=== PATIENT | male | born 1960 | race Caucasian/White ===

== ENCOUNTER 2016-07-03 18:26 | Emergency (ER) | payer MEDICARE, MEDICAID ==
[~2016-07-03] VITALS: Ht 182.9 cm; Wt 101.5 kg
[~2016-07-03 18:26] MED LIST: ACET325T14 PO; BISA10SU65 PR; CEFA2PLA9 IV; DIAZ2TAB3 PO; DIPH50VI4 IVPush; DOCU-30 PO; Enoxaparin Sodium SQ; GABA100C8 PO; GABA300C10 PO; HYDR-3241 PO; HYDR2VIA2 IV; LABE5VIA13 IV; METH500T7 PO; METH750T2 PO; MORP30TA3 PO; ONDA4VIA4 IV; OXYC-229 PO; OXYC1TAB9 PO; OXYC20TA42 PO; POLY17PO5 PO; PROM25AM6 IM; TRAM50TA2 PO; WARF10TA PO-COUM; WARF7.5T PO-COUM; ZOLP-413 PO
[2016-07-03] MEDS ORDERED: SODIUM CHLORIDE 0.9% 1,000ML IVBOLUS ONE (19:00)
[2016-07-03] MEDS ORDERED: ALBUTEROL/IPRATROPIUM 2.5MG/0.5MG, 3 ML NPPB ONE ×2 (19:00→19:30)
[2016-07-03] MEDS ORDERED: SODIUM CHLORIDE FLUSH 10ML SYR IVF ONE (19:00)
[2016-07-03] MEDS ORDERED: methylPREDNISolone SOD SUCC 125 MG/2 ML IVP ONE (19:00)
[2016-07-03 19:12] LABS: HEMOGLOBIN 14.1 g/dL (13.7-18.0)
[2016-07-03 19:16] LABS: BLOOD UREA NITROGEN 6 mg/dL (7-18)
[2016-07-03 19:19] LABS: IS PT STATUS REG ER OR PRE ER? YES
[2016-07-03] MEDS ORDERED: ALBUTEROL/IPRATROPIUM 2.5MG/0.5MG, 3 ML ONE (19:33)
[2016-07-03 21:38] VITALS: BP 121/91
== END 2016-07-03 21:52 | disposition home or self-care (01) ==
LOC: ED 21:41
DX: J44.0 Chronic obstructive pulmonary disease with (acute) lower respiratory infection (principal); J20.8 Acute bronchitis due to other specified organisms; Z89.511 Acquired absence of right leg below knee
CPT/HCPCS: 36415; 71010; 73564; 76882; 80048; 82040; 84484; 85025; 93005; 94640; 99285; J7512; J7620

== ENCOUNTER 2016-08-21 23:04 | Observation (INO) | payer OTHER, MEDICARE, MEDICAID ==
[~2016-08-21] VITALS: Ht 182.9 cm; Wt 101.0 kg
[2016-08-21] MEDS ORDERED: ASPIRIN 81 MG TABLET CHEW ONE (23:49)
[2016-08-22] MEDS ORDERED: ASPIRIN 81 MG TABLET CHEW PO ONE
[2016-08-22] MEDS ORDERED: SODIUM CHLORIDE FLUSH 10ML SYR IVF ONE
[2016-08-22 00:37] LABS: BLOOD UREA NITROGEN 18 mg/dL (7-18)
[2016-08-22 00:46] LABS: IS PT STATUS REG ER OR PRE ER? YES
[2016-08-22] MEDS ORDERED: ENOXAPARIN 40 MG/0.4 ML SQ SCH (01:30)
[2016-08-22] MEDS ORDERED: NITROGLYCERIN 0.4 MG BOTTLE (25 TABS) SL PRN (01:30)
[2016-08-22] MEDS ORDERED: ONDANSETRON 2MG/ML, 2ML IVPush PRN (01:30)
[2016-08-22] MEDS ORDERED: LORazepam 2 MG/ML, 1ML IVPush PRN (01:30)
[2016-08-22] MEDS ORDERED: ACETAMINOPHEN 325 MG TABLET PO PRN (01:30)
[2016-08-22] MEDS ORDERED: LORazepam 2 MG/ML, 1ML ONE (02:03)
[2016-08-22 03:23] VITALS: BP 107/74
[2016-08-22] MEDS: NS + 20MEQ KCL 1,000 ML IV SCH ×2 (03:57→14:00)
[2016-08-22] MEDS ORDERED: ASPIRIN 325 MG TABLET EC PO SCH (06:00)
[2016-08-22] MEDS ORDERED: REGADENOSON 0.4 MG/5 ML SYRINGE ONE (08:42)
[2016-08-22 08:50] VITALS: BP 105/74
[2016-08-22 09:45] LABS: IS PT STATUS REG ER OR PRE ER? NO
[2016-08-22 11:34] LABS: IS PT STATUS REG ER OR PRE ER? NO
== END 2016-08-22 15:00 | disposition left against medical advice (07) ==
LOC: ED 23:59 → EDIP 08-22 01:23 → 5SO 08-22 03:11
DX: R07.89 Other chest pain (principal); I73.9 Peripheral vascular disease, unspecified; D50.9 Iron deficiency anemia, unspecified; F41.9 Anxiety disorder, unspecified; D72.829 Elevated white blood cell count, unspecified; F17.200 Nicotine dependence, unspecified, uncomplicated; Z88.5 Allergy status to narcotic agent; Z83.3 Family history of diabetes mellitus; Z79.82 Long term (current) use of aspirin; Z91.19 Patient's noncompliance with other medical treatment and regimen; Z86.19 Personal history of other infectious and parasitic diseases; Z86.718 Personal history of other venous thrombosis and embolism; Z89.511 Acquired absence of right leg below knee
CPT/HCPCS: 36415; 71010; 78452; 80048; 82040; 83880; 84484; 85025; 85379; 93005; 93017; 96361; 96374; 99285; A9502; C9898; G0378; J2060; J2785; J3480

== ENCOUNTER 2017-03-27 00:18 | Emergency (ER) | payer MEDICARE ==
[~2017-03-27] VITALS: Ht 185.4 cm; Wt 57.0 kg
[~2017-03-27 00:18] MED LIST changes: +DIPH50VI IVPush; -DIPH50VI4 IVPush; +DOCU-131 PO; -DOCU-30 PO; +FAMO20TA7 PO; +FERR325T18 PO; +GABA-826 PO; -GABA100C8 PO; -OXYC-229 PO; +OXYC-307 PO
[2017-03-27 01:28] LABS: ALANINE AMINOTRANSFERASE 17 U/L (12-78); ALBUMIN 3.6 g/dL (3.4-5.0); ANION GAP 6 mmol/L (5-15); CALCIUM 8.9 mg/dL (8.5-10.1); CHLORIDE 104 mmol/L (98-107); CREATININE 0.81 mg/dL (0.7-1.3)
[2017-03-27 01:30] LABS: ALKALINE PHOSPHATASE 94 U/L (45-117); BILIRUBIN,TOTAL 0.3 mg/dL (0.2-1.0); MEAN CORPUSCULAR HEMOGLOBIN 21.4 pg (27.5-34.5); MEAN CORPUSCULAR HGB CONC 31.1 g/dL (33.2-36.2); MEAN CORPUSCULAR VOLUME 68.6 fL (81-97); MEAN PLATELET VOLUME 8.7 fL (7.4-10.4); PLATELET COUNT 457 x10^3/uL (130-400); RED BLOOD COUNT 5.11 x10^6/uL (4.38-5.82); TOTAL PROTEIN 7.5 g/dL (6.4-8.2)
[2017-03-27 01:45] LABS: MD YES
[2017-03-27 01:48] LABS: <PLATELET ESTIMATE> INCREASED; ANISOCYTOSIS 2+; BASOS#(MANUAL) 0.31 x10^3/uL (0-0.1); BASOS% (MANUAL) 3 % (0-1); HYPOCHROMIA 1+; LYMPH#(MANUAL) 3.09 x10^3/uL (1-3.4); LYMPHS% (MANUAL) 30 % (22-44); MICROCYTOSIS 2+; MONOS#(MANUAL) 0.62 x10^3/uL (0.3-2.7); MONOS% (MANUAL) 6 % (2-9); OVALOCYTES 1+; POLYCHROMASIA 1+; SEG#(MANUAL) 6.28 x10^3/uL (1.8-6.8); SEGS% (MANUAL) 61 % (42-75)
[2017-03-27 01:49] LABS: LARGE PLATELETS 1+
[2017-03-27 02:25] VITALS: BP 117/77
== END 2017-03-27 02:28 | disposition home or self-care (01) ==
LOC: ED 00:51
DX: R53.1 Weakness (principal); R42 Dizziness and giddiness; R11.2 Nausea with vomiting, unspecified; F17.200 Nicotine dependence, unspecified, uncomplicated; Z89.511 Acquired absence of right leg below knee; Z98.890 Other specified postprocedural states
CPT/HCPCS: 36415; 80053; 85025; 99284

== ENCOUNTER 2017-04-05 05:46 | Observation (INO) | payer OTHER ==
[~2017-04-05] VITALS: Ht 182.9 cm; Wt 102.9 kg
[2017-04-05] MEDS ORDERED: LIDOCAINE 1%, 2ML SQ PRN (06:30)
[2017-04-05] MEDS ORDERED: FAMO20TA7 PO (06:38)
[2017-04-05] MEDS ORDERED: FERR325T18 PO (06:38)
[2017-04-05 07:16] LABS: AMPHETAMINE SCREEN, URINE Negative (Negative); BARBITURATE SCREEN, URINE Negative (Negative); BENZODIAZEPINE SCREEN, URINE Negative (Negative); CANNABINOID SCREEN, URINE Positive (Negative); COCAINE SCREEN, URINE Negative (Negative); METHADONE SCREEN, URINE Negative (Negative); OPIATE SCREEN, URINE Negative (Negative)
[2017-04-05 07:24] VITALS: BP 128/87
[2017-04-05] MEDS: LACTATED RINGERS 1,000 ML IV SCH ×2 (07:24→13:26)
[2017-04-05 07:31] LABS: MEAN CORPUSCULAR VOLUME 67.8 fL (81-97); MEAN PLATELET VOLUME 9.8 fL (7.4-10.4); PLATELET COUNT 504 x10^3/uL (130-400); RED BLOOD COUNT 4.74 x10^6/uL (4.38-5.82); RED CELL DISTRIBUTION WIDTH 23.2 % (9.4-14.8)
[2017-04-05] MEDS ORDERED: FENTANYL PF 250 MCG/5ML ONE (07:31)
[2017-04-05] MEDS ORDERED: MIDAZOLAM 1 MG/ML, 2ML ONE (07:31)
[2017-04-05] MEDS ORDERED: ONDANSETRON 2MG/ML, 2ML ONE (07:36)
[2017-04-05] MEDS ORDERED: SUCCINYLCHOLINE 20 MG/ML, 10ML ONE (07:36)
[2017-04-05] MEDS ORDERED: GLYCOPYRROLATE 0.2MG/1ML, 5ML ONE (07:36)
[2017-04-05] MEDS ORDERED: ROCURONIUM 10 MG/ML,10ML ONE (07:36)
[2017-04-05] MEDS ORDERED: PROPOFOL 10 MG/ML, 20ML ONE (07:36)
[2017-04-05] MEDS ORDERED: DEXAMETHASONE 4 MG/ML, 1ML ONE (07:36)
[2017-04-05] MEDS ORDERED: NEOSTIGMINE 1 MG/ML, 10ML ONE (07:36)
[2017-04-05] MEDS ORDERED: CEFAZOLIN 1,000 MG ONE (07:36)
[2017-04-05] MEDS ORDERED: LABETALOL 5MG/ML, 20ML IV PRN (08:00)
[2017-04-05] MEDS ORDERED: HYDROcodone/APAP 7.5-325MG/15ML UDC PO PRN (08:00)
[2017-04-05] MEDS ORDERED: HYDROmorphone 1 MG/ML, 1ML IV PRN (08:00)
[2017-04-05] MEDS ORDERED: OXYcodone 5 MG/5 ML ORAL.SOL UDC PO PRN (08:00)
[2017-04-05] MEDS ORDERED: ONDANSETRON 2MG/ML, 2ML IVPush PRN ×2 (08:00→11:00)
[2017-04-05] MEDS ORDERED: hydrALAzine 20 MG/ML, 1ML IV PRN (08:00)
[2017-04-05] MEDS ORDERED: ACETAMINOPHEN 325 MG TABLET PO PRN (08:00)
[2017-04-05 08:25] LABS: MD YES
[2017-04-05 08:30] LABS: ANISOCYTOSIS 2+; EOS#(MANUAL) 0.19 x10^3/uL (0.0-0.4); EOS% (MANUAL) 2 % (1-7); HYPOCHROMIA 1+; LYMPH#(MANUAL) 4.37 x10^3/uL (1-3.4); LYMPHS% (MANUAL) 46 % (22-44); MICROCYTOSIS 2+; MONOS#(MANUAL) 0.57 x10^3/uL (0.3-2.7); MONOS% (MANUAL) 6 % (2-9); SEG#(MANUAL) 4.37 x10^3/uL (1.8-6.8); SEGS% (MANUAL) 46 % (42-75)
[2017-04-05 08:31] LABS: <PLATELET ESTIMATE> INCREASED; <PLT MORPHOLOGY> NORMAL PLT MORPH; OVALOCYTES 1+
[2017-04-05] MEDS ORDERED: HYDROmorphone 2 MG/ML, 1ML ONE ×4 (09:04→23:10)
[2017-04-05] MEDS ORDERED: PHENYLEPHRINE 10 MG/ML ONE (09:17)
[2017-04-05] MEDS ORDERED: VASOPRESSIN 20 UNIT/ML, 1ML ONE (09:17)
[2017-04-05] MEDS ORDERED: FENTANYL PF 100 MCG/2ML ONE (10:50)
[2017-04-05] MEDS ORDERED: ACETAMINOPHEN 650 MG/20.3 ML UDC ONE (10:50)
[2017-04-05] MEDS ORDERED: OXYcodone 5 MG/5 ML ORAL.SOL UDC ONE (10:50)
[2017-04-05] MEDS: FENTANYL PF 100 MCG/2ML IV PRN ×2 (10:52→10:58)
[2017-04-05] MEDS: KETOROLAC 30 MG/1 ML IVPush SCH ×2 (11:00→18:01)
[2017-04-05] MEDS ORDERED: BISACODYL 10 MG SUPP PR PRN (11:00)
[2017-04-05] MEDS ORDERED: KETOROLAC 30 MG/1 ML ONE (11:02)
[2017-04-05] MEDS: HYDROmorphone 1 MG/ML, 1ML IVPush PRN ×5 (11:05→23:12)
[2017-04-05] MEDS ORDERED: LORazepam 2 MG/ML, 1ML ONE (11:23)
[2017-04-05] MEDS ORDERED: LORazepam 2 MG/ML, 1ML IVPush PRN (11:30)
[2017-04-05] MEDS ORDERED: VANCOMYCIN PMX 1GM/200ML 200 ML IVPB ONE (12:00)
[2017-04-05 14:30] VITALS: BP 119/70
[2017-04-05] MEDS: OXYcodone/APAP 10/325MG TABLET PO PRN ×3 (15:09→21:29)
[2017-04-05] MEDS: CEFAZOLIN PMX 2GM/50ML 50 ML IVPB SCH (18:00)
[2017-04-05] MEDS: FERROUS SULFATE 325 MG TABLET PO SCH (18:01)
[2017-04-05 18:52] VITALS: BP 102/58
[2017-04-05] MEDS ORDERED: FERROUS SULFATE 325 MG TABLET PO SCH (21:00)
[2017-04-05] MEDS ORDERED: DOCUSATE 100 MG CAPSULE PO PRN (21:00)
[2017-04-05] MEDS: FAMOTIDINE 20 MG TABLET PO SCH (21:29)
[2017-04-05 23:53] VITALS: BP 127/70
[2017-04-06] MEDS: CEFAZOLIN PMX 2GM/50ML 50 ML IVPB SCH (02:00)
[2017-04-06] MEDS: OXYcodone/APAP 10/325MG TABLET PO PRN ×3 (02:45→11:43)
[2017-04-06] MEDS: KETOROLAC 30 MG/1 ML IVPush SCH (02:45)
[2017-04-06 03:59] VITALS: BP 122/72
[2017-04-06 05:57] LABS: CREATININE 0.92 mg/dL (0.7-1.3)
[2017-04-06] MEDS ORDERED: HYDROmorphone 2 MG/ML, 1ML ONE ×2 (08:34→13:29)
[2017-04-06 08:40] VITALS: BP 122/67
[2017-04-06] MEDS: FAMOTIDINE 20 MG TABLET PO SCH (08:40)
[2017-04-06] MEDS: HYDROmorphone 1 MG/ML, 1ML IVPush PRN ×2 (08:40→13:34)
[2017-04-06] MEDS: FERROUS SULFATE 325 MG TABLET PO SCH (08:40)
[2017-04-06] MEDS ORDERED: ENOXAPARIN 40 MG/0.4 ML SQ SCH (09:00)
[2017-04-06 12:40] VITALS: BP 116/55
== END 2017-04-06 15:55 | disposition left against medical advice (07) ==
LOC: OUT 05:46 → 4NOR 10:46
PROVIDERS: ADMIT Orthopaedic Surgery; ATTEND Orthopaedic Surgery
DX: S82.209B Unspecified fracture of shaft of unspecified tibia, initial encounter for open fracture type I or II (principal); S87.81XA Crushing injury of right lower leg, initial encounter; W23.0XXA Caught, crushed, jammed, or pinched between moving objects, initial encounter; M89.9 Disorder of bone, unspecified
CPT/HCPCS: 27886; 36415; 80307; 82565; 85025; 96365; 96367; 96375; 96376; G0378; J0330; J0690; J1100; J1170; J1650; J1885; J2060; J2250; J2370; J2405; J2704; J3010; J3370; J3490; J7120; J2710

== ENCOUNTER 2017-05-29 22:39 | Inpatient (IN) | payer OTHER ==
[~2017-05-29] VITALS: Ht 182.9 cm; Wt 111.3 kg
[2017-05-29] MEDS ORDERED: HYDROmorphone 1 MG/ML, 1ML IM ONE (23:30)
[2017-05-29] MEDS ORDERED: CEFTAROLINE 600 MG in SODIUM CHLORIDE 0.9% 100 ML IV ONE (23:30)
[2017-05-29] MEDS ORDERED: SODIUM CHLORIDE 0.9% 1,000ML IVBOLUS ONE (23:30)
[2017-05-29] MEDS ORDERED: SODIUM CHLORIDE FLUSH 10ML SYR IVF ONE (23:30)
[2017-05-29] MEDS ORDERED: HYDROmorphone 2 MG/ML, 1ML ONE (23:36)
[2017-05-30 00:02] LABS: MEAN CORPUSCULAR HEMOGLOBIN 19.7 pg (27.5-34.5); MEAN CORPUSCULAR HGB CONC 30.7 g/dL (33.2-36.2); MEAN CORPUSCULAR VOLUME 64.2 fL (81-97); RED CELL DISTRIBUTION WIDTH 23.1 % (9.4-14.8)
[2017-05-30 00:12] LABS: ALBUMIN 3.4 g/dL (3.4-5.0); ANION GAP 9 mmol/L (5-15); CALCIUM 8.8 mg/dL (8.5-10.1); CHLORIDE 101 mmol/L (98-107); CREATININE 0.79 mg/dL (0.7-1.3)
[2017-05-30 00:30] LABS: MD YES
[2017-05-30] MEDS ORDERED: hydrALAzine 20 MG/ML, 1ML IVPush PRN (00:30)
[2017-05-30] MEDS ORDERED: ONDANSETRON 2MG/ML, 2ML IVPush PRN (00:30)
[2017-05-30 00:31] LABS: MEAN PLATELET VOLUME 9.7 fL (7.4-10.4); PLATELET COUNT 707 x10^3/uL (130-400)
[2017-05-30 00:35] LABS: ANISOCYTOSIS 2+; BANDS%(MANUAL) 1 % (0-7); BASOS% (MANUAL) 2 % (0-1); LYMPH#(MANUAL) 1.59 x10^3/uL (1-3.4); LYMPHS% (MANUAL) 8 % (22-44); METAMYELOCYTES% (MANUAL) 1 % (0-1); MONOS#(MANUAL) 1.59 x10^3/uL (0.3-2.7); MONOS% (MANUAL) 8 % (2-9); NRBC % (MANUAL) 1 % (0-1); REACTIVE LYMPHS % (MANUAL) 3 % (0-0); SEGS% (MANUAL) 77 % (42-75)
[2017-05-30 00:43] LABS: ABSOLUTE RETICS # 0.13 x10^6/uL (0.5-1.5); RED BLOOD COUNT 4.97 x10^6/uL (4.38-5.82); RETICULOCYTE COUNT % 2.61 % (0.5-1.5)
[2017-05-30 00:45] LABS: <PLATELET ESTIMATE> INCREASED; HYPOCHROMIA 1+; MICROCYTOSIS 2+; OVALOCYTES 1+; POLYCHROMASIA 1+
[2017-05-30 00:48] LABS: LARGE PLATELETS 1+
[2017-05-30] MEDS: CEFTAROLINE 600 MG in SODIUM CHLORIDE 0.9% 100 ML IV SCH ×2 (01:15→13:46)
[2017-05-30] MEDS: ACETAMINOPHEN 325 MG TABLET PO PRN ×2 (01:30→08:59)
[2017-05-30] MEDS: OXYcodone IR 5MG TABLET PO PRN ×5 (01:30→22:31)
[2017-05-30] MEDS: LACTATED RINGERS 1,000 ML IV SCH ×3 (01:33→21:18)
[2017-05-30 01:35] VITALS: BP 112/73
[2017-05-30] MEDS: HEPARIN 5,000 UNITS/ML, 1ML SQ SCH ×3 (01:49→16:30)
[2017-05-30 07:55] VITALS: BP 118/74
[2017-05-30] MEDS: IRON SUCROSE COMPLEX 100MG/5ML IV SCH (08:44)
[2017-05-30] MEDS: FAMOTIDINE 20 MG TABLET PO SCH ×3 (08:45→22:32)
[2017-05-30 13:47] VITALS: BP 146/84
[2017-05-30 13:51] VITALS: BP 102/65
[2017-05-30 19:21] VITALS: BP 101/66
[2017-05-31] MEDS: HEPARIN 5,000 UNITS/ML, 1ML SQ SCH ×3 (00:16→16:34)
[2017-05-31] MEDS: CEFTAROLINE 600 MG in SODIUM CHLORIDE 0.9% 100 ML IV SCH ×2 (00:16→13:13)
[2017-05-31 01:19] VITALS: BP 107/70
[2017-05-31 05:58] LABS: ALBUMIN 2.8 g/dL (3.4-5.0); ANION GAP 8 mmol/L (5-15); CALCIUM 8.6 mg/dL (8.5-10.1); CHLORIDE 105 mmol/L (98-107)
[2017-05-31 06:02] LABS: ALANINE AMINOTRANSFERASE 22 U/L (12-78); ALKALINE PHOSPHATASE 103 U/L (45-117); BILIRUBIN,TOTAL 0.3 mg/dL (0.2-1.0); CREATININE 0.69 mg/dL (0.7-1.3); MEAN CORPUSCULAR HEMOGLOBIN 20.1 pg (27.5-34.5); MEAN CORPUSCULAR HGB CONC 31.2 g/dL (33.2-36.2); MEAN CORPUSCULAR VOLUME 64.2 fL (81-97); MEAN PLATELET VOLUME 8.7 fL (7.4-10.4); PLATELET COUNT 480 x10^3/uL (130-400); RED BLOOD COUNT 4.47 x10^6/uL (4.38-5.82); RED CELL DISTRIBUTION WIDTH 22.4 % (9.4-14.8); TOTAL PROTEIN 6.9 g/dL (6.4-8.2)
[2017-05-31] MEDS: LACTATED RINGERS 1,000 ML IV SCH ×2 (06:23→09:27)
[2017-05-31 06:36] LABS: MD YES
[2017-05-31 07:16] LABS: BASOS#(MANUAL) 0.38 x10^3/uL (0-0.1); BASOS% (MANUAL) 4 % (0-1); EOS#(MANUAL) 0.09 x10^3/uL (0.0-0.4); EOS% (MANUAL) 1 % (1-7); LYMPHS% (MANUAL) 17 % (22-44); MONOS#(MANUAL) 1.41 x10^3/uL (0.3-2.7); MONOS% (MANUAL) 15 % (2-9); SEG#(MANUAL) 5.92 x10^3/uL (1.8-6.8); SEGS% (MANUAL) 63 % (42-75)
[2017-05-31 07:23] LABS: ANISOCYTOSIS 2+; HYPOCHROMIA 1+; MICROCYTOSIS 2+; POLYCHROMASIA 1+
[2017-05-31 07:25] LABS: LARGE PLATELETS 1+
[2017-05-31 07:27] LABS: <PLATELET ESTIMATE> INCREASED
[2017-05-31 07:32] VITALS: BP 108/63
[2017-05-31] MEDS: FAMOTIDINE 20 MG TABLET PO SCH ×2 (09:27→20:35)
[2017-05-31] MEDS: OXYcodone IR 5MG TABLET PO PRN ×3 (09:28→17:19)
[2017-05-31] MEDS: IRON SUCROSE COMPLEX 100MG/5ML IV SCH (09:37)
[2017-05-31 13:42] VITALS: BP 94/50
[2017-05-31 18:31] VITALS: BP 116/66
[2017-06-01] MEDS: CEFTAROLINE 600 MG in SODIUM CHLORIDE 0.9% 100 ML IV SCH ×2 (00:30→12:39)
[2017-06-01] MEDS: HEPARIN 5,000 UNITS/ML, 1ML SQ SCH ×4 (00:30→22:59)
[2017-06-01 00:40] VITALS: BP 98/62
[2017-06-01] MEDS: OXYcodone IR 5MG TABLET PO PRN ×4 (02:24→21:33)
[2017-06-01 07:56] VITALS: BP 113/74
[2017-06-01] MEDS: FAMOTIDINE 20 MG TABLET PO SCH ×2 (10:32→19:57)
[2017-06-01] MEDS: IRON SUCROSE COMPLEX 100MG/5ML IV SCH (10:32)
[2017-06-01] MEDS: ACETAMINOPHEN 325 MG TABLET PO PRN ×2 (10:45→17:28)
[2017-06-01 13:37] VITALS: BP 93/59
[2017-06-01] MEDS: LACTATED RINGERS 1,000 ML IV SCH (15:00)
[2017-06-01 20:04] VITALS: BP 110/72
[2017-06-02] MEDS: CEFTAROLINE 600 MG in SODIUM CHLORIDE 0.9% 100 ML IV SCH ×2 (00:56→12:31)
[2017-06-02] MEDS: LACTATED RINGERS 1,000 ML IV SCH ×3 (01:00→21:00)
[2017-06-02 01:02] VITALS: BP 103/66
[2017-06-02] MEDS: OXYcodone IR 5MG TABLET PO PRN ×5 (01:33→18:29)
[2017-06-02 07:37] VITALS: BP 97/60
[2017-06-02] MEDS: HEPARIN 5,000 UNITS/ML, 1ML SQ SCH ×2 (08:07→15:35)
[2017-06-02] MEDS: IRON SUCROSE COMPLEX 100MG/5ML IV SCH (10:01)
[2017-06-02] MEDS: FAMOTIDINE 20 MG TABLET PO SCH ×2 (10:01→21:40)
[2017-06-02] MEDS ORDERED: GADOBUTROL 10 MMOL/10 ML PFS ONE (14:10)
[2017-06-02 15:28] VITALS: BP 108/66
[2017-06-02 19:48] VITALS: BP 90/53
[2017-06-03] MEDS: CEFTAROLINE 600 MG in SODIUM CHLORIDE 0.9% 100 ML IV SCH ×2 (00:08→12:32)
[2017-06-03] MEDS: OXYcodone IR 5MG TABLET PO PRN ×6 (01:54→22:43)
[2017-06-03 03:41] VITALS: BP 110/70
[2017-06-03] MEDS: LACTATED RINGERS 1,000 ML IV SCH ×2 (07:00→15:38)
[2017-06-03] MEDS: HEPARIN 5,000 UNITS/ML, 1ML SQ SCH ×3 (08:00→15:34)
[2017-06-03 08:17] VITALS: BP 120/76
[2017-06-03] MEDS: FAMOTIDINE 20 MG TABLET PO SCH ×2 (09:55→20:15)
[2017-06-03] MEDS: IRON SUCROSE COMPLEX 100MG/5ML IV SCH (09:55)
[2017-06-03] MEDS ORDERED: NICOTINE 14MG/24 HR PATCH.TD24 ONE (13:44)
[2017-06-03] MEDS: NICOTINE 14MG/24 HR PATCH.TD24 TD SCH (13:47)
[2017-06-03 15:00] VITALS: BP 113/71
[2017-06-03 20:20] VITALS: BP 112/57
[2017-06-04] MEDS: CEFTAROLINE 600 MG in SODIUM CHLORIDE 0.9% 100 ML IV SCH ×3 (00:18→23:50)
[2017-06-04 01:07] VITALS: BP 127/72
[2017-06-04] MEDS: OXYcodone IR 5MG TABLET PO PRN ×3 (03:23→21:34)
[2017-06-04] MEDS: LACTATED RINGERS 1,000 ML IV SCH ×3 (03:24→23:51)
[2017-06-04] MEDS ORDERED: BACITRACIN 50,000 UNIT ONE (06:52)
[2017-06-04 07:22] LABS: MEAN CORPUSCULAR HEMOGLOBIN 20.5 pg (27.5-34.5); MEAN CORPUSCULAR HGB CONC 30.8 g/dL (33.2-36.2); MEAN CORPUSCULAR VOLUME 66.7 fL (81-97); MEAN PLATELET VOLUME 9.3 fL (7.4-10.4); PLATELET COUNT 646 x10^3/uL (130-400); RED BLOOD COUNT 4.95 x10^6/uL (4.38-5.82); RED CELL DISTRIBUTION WIDTH 22.9 % (9.4-14.8)
[2017-06-04] MEDS: HEPARIN 5,000 UNITS/ML, 1ML SQ SCH ×4 (07:29→23:51)
[2017-06-04 07:32] LABS: ANION GAP 7 mmol/L (5-15); CALCIUM 8.6 mg/dL (8.5-10.1); CHLORIDE 107 mmol/L (98-107); CREATININE 0.84 mg/dL (0.7-1.3)
[2017-06-04 09:00] LABS: BAND#(MANUAL) 0.09 x10^3/uL; BANDS%(MANUAL) 1 % (0-7); LYMPH#(MANUAL) 1.74 x10^3/uL (1-3.4); LYMPHS% (MANUAL) 20 % (22-44); MD YES; MONOS#(MANUAL) 0.87 x10^3/uL (0.3-2.7); MONOS% (MANUAL) 10 % (2-9); REACTIVE LYMPHS # (MANUAL) 0.26 x10^3/uL (0-0); REACTIVE LYMPHS % (MANUAL) 3 % (0-0)
[2017-06-04 09:01] LABS: <PLATELET ESTIMATE> INCREASED; EOS#(MANUAL) 0.09 x10^3/uL (0.0-0.4); EOS% (MANUAL) 1 % (1-7); LARGE PLATELETS 1+; SEG#(MANUAL) 5.66 x10^3/uL (1.8-6.8); SEGS% (MANUAL) 65 % (42-75)
[2017-06-04 09:02] LABS: ANISOCYTOSIS 2+; MICROCYTOSIS 2+
[2017-06-04 09:04] LABS: HYPOCHROMIA 1+; POLYCHROMASIA 1+
[2017-06-04] MEDS: IRON SUCROSE COMPLEX 100MG/5ML IV SCH (09:11)
[2017-06-04] MEDS: FAMOTIDINE 20 MG TABLET PO SCH ×2 (09:11→20:38)
[2017-06-04 09:14] VITALS: BP 104/59
[2017-06-04] MEDS ORDERED: FENTANYL PF 250 MCG/5ML ONE (16:09)
[2017-06-04] MEDS ORDERED: MIDAZOLAM 1 MG/ML, 2ML ONE (16:09)
[2017-06-04] MEDS ORDERED: DEXAMETHASONE 4 MG/ML, 1ML ONE (16:36)
[2017-06-04] MEDS ORDERED: PROPOFOL 10 MG/ML, 20ML ONE (16:36)
[2017-06-04] MEDS ORDERED: ONDANSETRON 2MG/ML, 2ML ONE (16:36)
[2017-06-04] MEDS ORDERED: NEOSTIGMINE 1 MG/ML, 10ML ONE (16:36)
[2017-06-04] MEDS ORDERED: hydrALAzine 20 MG/ML, 1ML IV PRN (17:00)
[2017-06-04] MEDS ORDERED: LABETALOL 5MG/ML, 20ML IV PRN (17:00)
[2017-06-04] MEDS ORDERED: ACETAMINOPHEN 325 MG TABLET PO PRN (17:00)
[2017-06-04] MEDS ORDERED: morphine SULFATE 10 MG/ML, 1ML IV PRN (17:00)
[2017-06-04] MEDS ORDERED: OXYcodone 5 MG/5 ML ORAL.SOL UDC PO PRN (17:00)
[2017-06-04] MEDS ORDERED: LORazepam 2 MG/ML, 1ML IVPush PRN (17:00)
[2017-06-04] MEDS ORDERED: ONDANSETRON 2MG/ML, 2ML IVPush PRN (17:00)
[2017-06-04] MEDS ORDERED: PROMETHAZINE 12.5 MG SUPP PR PRN (17:00)
[2017-06-04] MEDS ORDERED: FENTANYL PF 100 MCG/2ML ONE ×2 (17:21→17:43)
[2017-06-04] MEDS ORDERED: OXYcodone 5 MG/5 ML ORAL.SOL UDC ONE (17:21)
[2017-06-04] MEDS: FENTANYL PF 100 MCG/2ML IV PRN ×4 (17:27→18:02)
[2017-06-04] MEDS ORDERED: MEPERIDINE/PF 50 MG/ML ONE ×2 (17:34→18:17)
[2017-06-04] MEDS: MEPERIDINE/PF 25MG/0.5ML IVPush PRN ×2 (17:36→18:15)
[2017-06-04] MEDS ORDERED: LORazepam 2 MG/ML, 1ML ONE (18:05)
[2017-06-04 18:30] VITALS: BP 125/81
[2017-06-04 19:13] VITALS: BP 120/76
[2017-06-04] MEDS: NICOTINE 14MG/24 HR PATCH.TD24 TD SCH (20:38)
[2017-06-04 23:33] VITALS: BP 103/61
[2017-06-05] MEDS: OXYcodone IR 5MG TABLET PO PRN ×2 (01:33→07:50)
[2017-06-05 03:45] VITALS: BP 111/69
[2017-06-05 06:56] VITALS: BP 113/72
[2017-06-05] MEDS: HEPARIN 5,000 UNITS/ML, 1ML SQ SCH ×3 (07:50→23:59)
[2017-06-05] MEDS: FAMOTIDINE 20 MG TABLET PO SCH ×2 (07:50→21:23)
[2017-06-05] MEDS: IRON SUCROSE COMPLEX 100MG/5ML IV SCH (07:50)
[2017-06-05] MEDS: LACTATED RINGERS 1,000 ML IV SCH (09:36)
[2017-06-05] MEDS: OXYcodone/APAP 10/325MG TABLET PO PRN ×3 (12:57→23:59)
[2017-06-05] MEDS: CEFTAROLINE 600 MG in SODIUM CHLORIDE 0.9% 100 ML IV SCH ×2 (12:57→19:57)
[2017-06-05] MEDS: PREGABALIN 25 MG CAPSULE PO SCH ×2 (12:58→21:23)
[2017-06-05 15:12] VITALS: BP 104/63
[2017-06-05 17:10] LABS: HCT (SEDRATE) 30.5 % (39.2-51.8)
[2017-06-05] MEDS: NICOTINE 14MG/24 HR PATCH.TD24 TD SCH (19:58)
[2017-06-05 20:31] VITALS: BP 123/72
[2017-06-06 01:08] VITALS: BP 111/74
[2017-06-06] MEDS: CEFTAROLINE 600 MG in SODIUM CHLORIDE 0.9% 100 ML IV SCH ×3 (04:13→21:39)
[2017-06-06 07:55] VITALS: BP 124/82
[2017-06-06] MEDS: FAMOTIDINE 20 MG TABLET PO SCH ×2 (08:43→21:26)
[2017-06-06] MEDS: OXYcodone/APAP 10/325MG TABLET PO PRN ×3 (08:43→21:26)
[2017-06-06] MEDS: PREGABALIN 25 MG CAPSULE PO SCH ×2 (08:43→21:26)
[2017-06-06] MEDS: IRON SUCROSE COMPLEX 100MG/5ML IV SCH (08:43)
[2017-06-06] MEDS: HEPARIN 5,000 UNITS/ML, 1ML SQ SCH ×3 (08:44→23:54)
[2017-06-06 12:48] VITALS: BP 110/72
[2017-06-06 18:50] VITALS: BP 120/76
[2017-06-06] MEDS: NICOTINE 14MG/24 HR PATCH.TD24 TD SCH (21:39)
[2017-06-07 00:44] VITALS: BP 131/83
[2017-06-07] MEDS: OXYcodone/APAP 10/325MG TABLET PO PRN ×4 (01:47→20:08)
[2017-06-07] MEDS: CEFTAROLINE 600 MG in SODIUM CHLORIDE 0.9% 100 ML IV SCH (04:04)
[2017-06-07] MEDS: IRON SUCROSE COMPLEX 100MG/5ML IV SCH (08:14)
[2017-06-07] MEDS: HEPARIN 5,000 UNITS/ML, 1ML SQ SCH ×2 (08:14→17:58)
[2017-06-07] MEDS: PREGABALIN 25 MG CAPSULE PO SCH ×2 (08:14→20:08)
[2017-06-07] MEDS: FAMOTIDINE 20 MG TABLET PO SCH ×2 (08:14→20:08)
[2017-06-07 09:13] VITALS: BP 110/73
[2017-06-07] MEDS: CEFAZOLIN PMX 2GM/50ML 50 ML IVPB SCH ×2 (09:57→17:57)
[2017-06-07 14:15] VITALS: BP 113/75
[2017-06-07] MEDS: NICOTINE 14MG/24 HR PATCH.TD24 TD SCH (20:08)
[2017-06-07 20:59] VITALS: BP 130/79
[2017-06-08] MEDS: HEPARIN 5,000 UNITS/ML, 1ML SQ SCH ×3 (00:08→16:00)
[2017-06-08] MEDS: OXYcodone/APAP 10/325MG TABLET PO PRN ×2 (01:31→07:58)
[2017-06-08] MEDS: CEFAZOLIN PMX 2GM/50ML 50 ML IVPB SCH ×3 (01:31→17:05)
[2017-06-08 01:53] VITALS: BP 136/84
[2017-06-08 06:39] VITALS: BP 119/74
[2017-06-08] MEDS: IRON SUCROSE COMPLEX 100MG/5ML IV SCH (07:58)
[2017-06-08] MEDS: FAMOTIDINE 20 MG TABLET PO SCH ×2 (07:59→21:00)
[2017-06-08] MEDS: PREGABALIN 25 MG CAPSULE PO SCH ×2 (07:59→21:00)
[2017-06-08 13:36] VITALS: BP 130/82
[2017-06-08] MEDS: NICOTINE 14MG/24 HR PATCH.TD24 TD SCH (20:00)
[2017-06-09] MEDS: CEFAZOLIN PMX 2GM/50ML 50 ML IVPB SCH ×2 (01:00→09:15)
[2017-06-09] MEDS: FAMOTIDINE 20 MG TABLET PO SCH (09:15)
[2017-06-09] MEDS: HEPARIN 5,000 UNITS/ML, 1ML SQ SCH ×2 (09:15)
[2017-06-09] MEDS: PREGABALIN 25 MG CAPSULE PO SCH (09:15)
[2017-06-09] MEDS ORDERED: CEPH-368 PO (09:52)
== END 2017-06-09 10:15 | disposition home or self-care (01) | DRG 853 ==
LOC: ED 23:14 → EDIP 05-30 00:09 → SUATTDRO 05-30 00:14 → 4NOR 05-30 01:07
PROVIDERS: ADMIT Hospitalist; ATTEND Family Medicine
PROC: 0KBS0ZZ Excision of Right Lower Leg Muscle, Open Approach (ICD-10-PCS; principal; 2017-06-04 12:30)
PROC: B548ZZA Ultrasonography of Superior Vena Cava, Guidance (ICD-10-PCS; 2017-06-07)
PROC: 02HV33Z Insertion of Infusion Device into Superior Vena Cava, Percutaneous Approach (ICD-10-PCS; 2017-06-07)
DX: A41.9 Sepsis, unspecified organism (principal); E43 Unspecified severe protein-calorie malnutrition; T81.31XA Disruption of external operation (surgical) wound, not elsewhere classified, initial encounter; L03.115 Cellulitis of right lower limb; D50.9 Iron deficiency anemia, unspecified; F17.210 Nicotine dependence, cigarettes, uncomplicated; T87.43 Infection of amputation stump, right lower extremity; D63.8 Anemia in other chronic diseases classified elsewhere; E66.9 Obesity, unspecified; B95.62 Methicillin resistant Staphylococcus aureus infection as the cause of diseases classified elsewhere; G89.29 Other chronic pain; Y83.5 Amputation of limb(s) as the cause of abnormal reaction of the patient, or of later complication, without mention of misadventure at the time of the procedure; W23.0XXA Caught, crushed, jammed, or pinched between moving objects, initial encounter; S87.81XA Crushing injury of right lower leg, initial encounter; Z86.19 Personal history of other infectious and parasitic diseases; Z86.718 Personal history of other venous thrombosis and embolism; Z91.19 Patient's noncompliance with other medical treatment and regimen; Z68.30 Body mass index [BMI] 30.0-30.9, adult; Z86.14 Personal history of Methicillin resistant Staphylococcus aureus infection; Y93.89 Activity, other specified; Y92.89 Other specified places as the place of occurrence of the external cause; Y99.8 Other external cause status; Z88.5 Allergy status to narcotic agent
CPT/HCPCS: 36415; 36569; 76937; 77001; 80048; 80053; 82040; 82607; 82728; 83540; 83550; 83605; 83735; 84100; 85025; 85045; 85651; 86140; 87040; 87070; 87075; 87077; 87186; 87205; 96372; 99285; A9585; J0690; J0712; J1100; J1170; J1644; J1756; J2175; J2250; J2405; J2704; J2710; J3010; C1751; J2060; J7120

== ENCOUNTER 2018-01-15 14:44 | Emergency (ER) | payer OTHER ==
[~2018-01-15] VITALS: Ht 182.9 cm; Wt 80.0 kg
[~2018-01-15 14:44] MED LIST changes: +CEPH-368 PO; -DIPH50VI IVPush; +DIPH50VI10 IVPush; -ONDA4VIA4 IV; +ONDA4VIA8 IV; +OXYC-432 PO; -OXYC1TAB9 PO
[2018-01-15 15:52] LABS: ALANINE AMINOTRANSFERASE 29 U/L (12-78); ALBUMIN 3.6 g/dL (3.4-5.0); ANION GAP 10 mmol/L (5-15); CHLORIDE 105 mmol/L (98-107); CREATININE 1.01 mg/dL (0.7-1.3)
[2018-01-15 15:54] LABS: ALKALINE PHOSPHATASE 124 U/L (45-117); BILIRUBIN,TOTAL 0.4 mg/dL (0.2-1.0); TOTAL PROTEIN 8.1 g/dL (6.4-8.2)
[2018-01-15 16:00] LABS: MD YES; MEAN CORPUSCULAR HGB CONC 31.4 g/dL (33.2-36.2); MEAN CORPUSCULAR VOLUME 67.1 fL (81-97); MEAN PLATELET VOLUME 9.6 fL (7.4-10.4); PLATELET COUNT 725 x10^3/uL (130-400); RED BLOOD COUNT 5.31 x10^6/uL (4.38-5.82); RED CELL DISTRIBUTION WIDTH 19.7 % (9.4-14.8)
[2018-01-15 16:05] LABS: INTERNATIONAL NORMALIZED RATIO 1.01 (0.93-1.1); PROTHROMBIN TIME 10.4 Seconds (9.6-11.5)
[2018-01-15 16:09] LABS: TROPONIN I < 0.015 ng/mL (0.000-0.045)
[2018-01-15] MEDS ORDERED: ONDANSETRON 2MG/ML, 2ML ONE (16:19)
[2018-01-15] MEDS ORDERED: HYDROmorphone 2 MG/ML, 1ML ONE ×2 (16:20→17:06)
[2018-01-15 16:25] LABS: EOS#(MANUAL) 0.12 x10^3/uL (0.0-0.4); EOS% (MANUAL) 1 % (1-7); LYMPH#(MANUAL) 1.46 x10^3/uL (1-3.4); LYMPHS% (MANUAL) 12 % (22-44); MONOS#(MANUAL) 0.98 x10^3/uL (0.3-2.7); MONOS% (MANUAL) 8 % (2-9); SEG#(MANUAL) 9.64 x10^3/uL (1.8-6.8); SEGS% (MANUAL) 79 % (42-75)
[2018-01-15 16:26] LABS: <PLATELET ESTIMATE> INCREASED; ANISOCYTOSIS 1+; LARGE PLATELETS 1+; MICROCYTOSIS 1+; POLYCHROMASIA 1+
[2018-01-15] MEDS ORDERED: MORPHINE SULFATE 4 MG/ML, 1ML IVPush PRN (16:30)
[2018-01-15] MEDS ORDERED: HYDROmorphone 1 MG/ML, 1ML IV ONE ×2 (16:30)
[2018-01-15] MEDS ORDERED: ONDANSETRON 2MG/ML, 2ML IVPush ONE (16:30)
[2018-01-15] MEDS ORDERED: OMNIPAQUE 350 MG/ML, 100ML BOTTLE ONE (17:19)
[2018-01-15 17:47] VITALS: BP 111/73
== END 2018-01-15 17:56 | disposition home or self-care (01) ==
LOC: ED 17:30
DX: L03.115 Cellulitis of right lower limb (principal); R07.89 Other chest pain; R06.00 Dyspnea, unspecified
CPT/HCPCS: 36415; 71045; 71275; 73590; 80053; 84484; 85025; 85610; 93005; 93971; 96374; 96375; 96376; 99285; J1170; J2405; Q9967

== ENCOUNTER 2018-11-04 11:25 | Inpatient (IN) | payer MEDICARE ==
[~2018-11-04] VITALS: Ht 182.9 cm; Wt 108.7 kg
[2018-11-07 08:10] VITALS: BP 103/65
== END 2018-11-07 13:57 | disposition home or self-care (01) | DRG 378 ==
LOC: ED 13:55 → EDIP 13:56 → ED 14:40 → 3NE 16:02
PROVIDERS: ADMIT Internal Medicine; ATTEND Internal Medicine
PROC: 30233N1 Transfusion of Nonautologous Red Blood Cells into Peripheral Vein, Percutaneous Approach (ICD-10-PCS; principal; 2018-11-04)
PROC: 0DJ08ZZ Inspection of Upper Intestinal Tract, Via Natural or Artificial Opening Endoscopic (ICD-10-PCS; 2018-11-06)
PROC: 0DJD8ZZ Inspection of Lower Intestinal Tract, Via Natural or Artificial Opening Endoscopic (ICD-10-PCS; 2018-11-06)
DX: K57.31 Diverticulosis of large intestine without perforation or abscess with bleeding (principal); D62 Acute posthemorrhagic anemia; N30.01 Acute cystitis with hematuria; K64.0 First degree hemorrhoids; E86.0 Dehydration; B95.2 Enterococcus as the cause of diseases classified elsewhere; K44.9 Diaphragmatic hernia without obstruction or gangrene; K21.9 Gastro-esophageal reflux disease without esophagitis; F12.90 Cannabis use, unspecified, uncomplicated; Z88.5 Allergy status to narcotic agent; Z89.511 Acquired absence of right leg below knee
CPT/HCPCS: 36415; 36430; 71045; 74176; 80048; 80053; 81001; 82728; 83540; 83550; 83735; 84100; 84466; 84484; 85025; 85610; 85730; 86850; 86900; 86923; 87077; 87086; 87147; 87186; 93005; 96365; 99152; 99153; 99291; G0378; J0696; J1750; J1756; J2250; J3010; C9113; J7030; J7050; P9016

== ENCOUNTER 2019-05-12 17:07 | Emergency (ER) | payer MEDICARE ==
[~2019-05-12] VITALS: Ht 182.9 cm; Wt 111.6 kg
[~2019-05-12 17:07] MED LIST changes: +AMOX-291 PO; +FERR-46 PO; +MORP-30 PO; -MORP30TA3 PO; +ONDA4VIA60 IV; -ONDA4VIA8 IV; +PANT20TA3 PO
--- NOTE | 2019-05-12 18:53 | NUR ---
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
[2019-05-12] MEDS ORDERED: ALBUTEROL/IPRATROPIUM 2.5MG/0.5MG, 3 ML NPPB ONE (19:30)
[2019-05-12 19:43] LABS: ANION GAP 6 mmol/L (5-15); CALCIUM 8.9 mg/dL (8.5-10.1); CHLORIDE 106 mmol/L (98-107); CREATININE 1.03 mg/dL (0.7-1.3)
[2019-05-12 19:44] LABS: ALBUMIN 3.6 g/dL (3.4-5.0)
[2019-05-12 19:48] LABS: TROPONIN I < 0.015 ng/mL (0.000-0.045)
[2019-05-12 20:02] VITALS: BP 99/72
--- NOTE | 2019-05-12 20:02 | NUR ---
PT MEDICATED PER EMAR.
[2019-05-12 20:09] LABS: MEAN CORPUSCULAR HEMOGLOBIN 22.9 pg (27.5-34.5); MEAN CORPUSCULAR HGB CONC 31.3 g/dL (33.2-36.2); MEAN CORPUSCULAR VOLUME 73.1 fL (81-97); MEAN PLATELET VOLUME 9.7 fL (7.4-10.4); PLATELET COUNT 488 x10^3/uL (130-400); RED BLOOD COUNT 4.98 x10^6/uL (4.38-5.82); RED CELL DISTRIBUTION WIDTH 18.4 % (9.4-14.8)
[2019-05-12 20:10] LABS: MD YES
[2019-05-12 20:48] LABS: BASOS% (MANUAL) 1 % (0-1); LYMPH#(MANUAL) 1.98 x10^3/uL (1-3.4); LYMPHS% (MANUAL) 19 % (22-44); MONOS#(MANUAL) 1.04 x10^3/uL (0.3-2.7); MONOS% (MANUAL) 10 % (2-9); REACTIVE LYMPHS # (MANUAL) 0.21 x10^3/uL (0-0); REACTIVE LYMPHS % (MANUAL) 2 % (0-0); SEG#(MANUAL) 7.07 x10^3/uL (1.8-6.8); SEGS% (MANUAL) 68 % (42-75)
[2019-05-12 20:50] LABS: HYPOCHROMIA 2+; MICROCYTOSIS 2+; OVALOCYTES 1+; POLYCHROMASIA 1+
[2019-05-12 20:52] LABS: <PLATELET ESTIMATE> INCREASED; LARGE PLATELETS 1+; TARGET CELLS 1+
--- NOTE | 2019-05-12 21:13 | NUR ---
Patient/Caregiver given discharge instructions and they have confirmed that they understand the instructions. Patient ambulatory with steady gait.
== END 2019-05-12 21:16 | disposition home or self-care (01) ==
LOC: ED 20:00
DX: J44.1 Chronic obstructive pulmonary disease with (acute) exacerbation (principal); J20.9 Acute bronchitis, unspecified; F17.200 Nicotine dependence, unspecified, uncomplicated; Z89.511 Acquired absence of right leg below knee; R94.01 Abnormal electroencephalogram [EEG]
CPT/HCPCS: 36415; 71046; 80048; 82040; 84484; 85025; 93005; 94640; 99285; J7512; J7620

== ENCOUNTER 2019-10-01 20:08 | Inpatient (IN) | payer MEDICARE, OTHER ==
[~2019-10-01] VITALS: Ht 182.9 cm; Wt 114.6 kg
[2019-10-01] MEDS ORDERED: OXYcodone/APAP 5/325MG TABLET ONE (20:47)
[2019-10-01] MEDS ORDERED: OXYcodone/APAP 5/325MG TABLET PO ONE (21:00)
[2019-10-01 21:16] LABS: ALBUMIN 3.2 g/dL (3.4-5.0); ANION GAP 7 mmol/L (5-15); CALCIUM 9.3 mg/dL (8.5-10.1); CHLORIDE 101 mmol/L (98-107); CREATININE 1.26 mg/dL (0.7-1.3)
[2019-10-01 21:24] LABS: MEAN CORPUSCULAR HEMOGLOBIN 17.6 pg (27.5-34.5); MEAN CORPUSCULAR VOLUME 59.4 fL (81-97); MEAN PLATELET VOLUME 9.1 fL (7.4-10.4); PLATELET COUNT 447 x10^3/uL (130-400); RED BLOOD COUNT 4.75 x10^6/uL (4.38-5.82); RED CELL DISTRIBUTION WIDTH 21.7 % (9.4-14.8)
--- NOTE | 2019-10-01 21:30 | NUR ---
MD AT BEDSIDE TO UPDATE PT ON POC.
[2019-10-01 21:48] LABS: MD YES; MEAN CORPUSCULAR HGB CONC 29.5 g/dL (33.2-36.2)
[2019-10-01 21:53] LABS: LYMPHS% (MANUAL) 8 % (22-44); METAMYELOCYTES% (MANUAL) 1 % (0-1); MONOS% (MANUAL) 10 % (2-9); REACTIVE LYMPHS % (MANUAL) 2 % (0-0); SEGS% (MANUAL) 79 % (42-75)
[2019-10-01 21:54] LABS: ANISOCYTOSIS 2+; HYPOCHROMIA 2+; MICROCYTOSIS 2+
[2019-10-01 21:55] LABS: <PLATELET ESTIMATE> INCREASED; GIANT PLATELETS 1+; LARGE PLATELETS 1+; OVALOCYTES 1+; POLYCHROMASIA 1+; TARGET CELLS 1+
--- NOTE | 2019-10-01 21:55 | NUR ---
PT TO BE ADMITTED FOR CELLULITIS. PIV PLACED AND 1 SET BLOOD CULTURE DRAWN. LAB AT BEDSIDE TO SECOND SET.
[2019-10-01] MEDS ORDERED: MORPHINE SULFATE 4 MG/ML, 1ML IV PRN (22:00)
[2019-10-01] MEDS ORDERED: SODIUM CHLORIDE 0.9% 1,000ML IVBOLUS ONE (22:00)
[2019-10-01] MEDS ORDERED: PIPERACILLIN/TAZO/PMX 3.375GM 50 ML IV ONE (22:00)
[2019-10-01] MEDS ORDERED: VANCOMYCIN 2,000 MG in SODIUM CHLORIDE 0.9% 500 ML IV ONE (22:00)
[2019-10-01] MEDS ORDERED: VANCOMYCIN PER PHARMACY MC ONE (22:00)
--- NOTE | 2019-10-01 22:02 | NUR ---
REPORT GIVEN TO MARGARETTE CAREY.
[2019-10-01] MEDS ORDERED: PIPERACILLIN/TAZO/PMX 3.375GM 50 ML ONE (22:08)
[2019-10-01] MEDS ORDERED: MORPHINE SULFATE 4 MG/ML, 1ML ONE (22:09)
[2019-10-01] MEDS ORDERED: FENTANYL PF 100 MCG/2ML ONE (22:16)
--- NOTE | 2019-10-01 22:26 | NUR ---
ANTIBIOTICS STARTED. PATIENT VERBALIZED UNDERSTANDING. PATIENT GIVEN PAIN MEDICATIONS. NO NOTED ACUTE DISTRESS. VITAL SIGNS ARE STABLE. WILL CONTINUE TO MONITOR. ADMITTING MD AT BEDSIDE WITH PATIENT COMPLETING ADMISSION INTERVIEW.
[2019-10-01] MEDS ORDERED: ACETAMINOPHEN 325 MG TABLET PO PRN (22:30)
[2019-10-01] MEDS ORDERED: METHOCARBAMOL 500 MG TABLET PO PRN (22:30)
[2019-10-01] MEDS ORDERED: ASA/APAP/ CAFFEINE TABLET PO PRN (22:30)
[2019-10-01] MEDS ORDERED: hydrALAzine 20 MG/ML, 1ML IVPush PRN (22:30)
[2019-10-01] MEDS ORDERED: ONDANSETRON 2MG/ML, 2ML IVPush PRN (22:30)
[2019-10-01] MEDS ORDERED: ZOLPIDEM 5MG TABLET PO PRN (22:30)
[2019-10-01] MEDS ORDERED: GUAIFENESIN/DM 200-20MG, 10ML UDC PO PRN (22:30)
[2019-10-01] MEDS ORDERED: ENOXAPARIN 40 MG/0.4 ML SQ SCH (22:30)
[2019-10-01] MEDS ORDERED: FENTANYL PF 100 MCG/2ML IVPush PRN (22:30)
[2019-10-01] MEDS ORDERED: DOCUSATE 100 MG CAPSULE PO PRN (22:30)
--- NOTE | 2019-10-01 22:40 | NUR ---
SPOKE WITH THROUGH PUT NURSE. CAN NOT KEEP PATIENT TO START SECONDARY ANTIBIOTICS, CAN NOT DELAY PATIENT ADMISSION.
[2019-10-01] MEDS ORDERED: HYDROmorphone 2 MG/ML, 1ML ONE (22:42)
--- NOTE | 2019-10-01 22:45 | NUR ---
PATIENT IN EXTREME DISCOMFORT. SPOKE WITH ADMITTING PHYSICIAN. IV DILUADID GIVEN TO PATIENT PRIOR TO ADMISSION TO IMPROVE PATIENT COMFORT.
[2019-10-01 22:56] VITALS: BP 127/83
[2019-10-01] MEDS ORDERED: HYDROmorphone 1 MG/ML, 1ML INJ IV PRN (23:00)
[2019-10-01] MEDS ORDERED: VANCOMYCIN PER PHARMACY MC PRN (23:00)
[2019-10-01] MEDS: SODIUM CHLORIDE 0.9% 1,000 ML IV SCH (23:11)
[2019-10-01] MEDS ORDERED: PHARMACOKINETIC CONSULTATION MC ONE (23:30)
[2019-10-01] MEDS ORDERED: PHARMACOKINETIC MONITORING MC PRN (23:30)
[2019-10-02 00:07] VITALS: BP 138/69
[2019-10-02] MEDS: KETOROLAC 30 MG/1 ML IV PRN (05:39)
[2019-10-02] MEDS: PIPERACILLIN/TAZO/PMX 3.375GM 50 ML IV SCH ×3 (05:39→23:19)
[2019-10-02 06:08] LABS: MEAN CORPUSCULAR HEMOGLOBIN 17.7 pg (27.5-34.5); MEAN CORPUSCULAR VOLUME 59.3 fL (81-97); PLATELET COUNT 402 x10^3/uL (130-400); RED BLOOD COUNT 4.15 x10^6/uL (4.38-5.82); RED CELL DISTRIBUTION WIDTH 21.7 % (9.4-14.8)
[2019-10-02 06:11] LABS: % IRON SATURATION 3 % (20-55); ANION GAP 6 mmol/L (5-15); CALCIUM 8.3 mg/dL (8.5-10.1); CHLORIDE 103 mmol/L (98-107); CREATININE 0.89 mg/dL (0.7-1.3); IRON LEVEL 12 mcg/dL (65-175); TOTAL IRON BINDING CAPACITY 390 mcg/dL (250-450)
[2019-10-02 06:15] LABS: TRANSFERRIN 314 mg/dL (200-360)
[2019-10-02 06:20] LABS: MEAN CORPUSCULAR HGB CONC 29.8 g/dL (33.2-36.2)
[2019-10-02 06:32] LABS: MD YES
[2019-10-02 06:34] LABS: LYMPH#(MANUAL) 2.26 x10^3/uL (1-3.4); LYMPHS% (MANUAL) 13 % (22-44); MONOS#(MANUAL) 1.57 x10^3/uL (0.3-2.7); MONOS% (MANUAL) 9 % (2-9); SEG#(MANUAL) 13.57 x10^3/uL (1.8-6.8); SEGS% (MANUAL) 78 % (42-75)
[2019-10-02 06:35] LABS: <PLATELET ESTIMATE> INCREASED; <PLT MORPHOLOGY> NORMAL PLT MORPH; ANISOCYTOSIS 2+; HYPOCHROMIA 2+; MICROCYTOSIS 2+; OVALOCYTES 1+; POLYCHROMASIA 2+; TARGET CELLS 1+
[2019-10-02 07:31] VITALS: BP 112/84
[2019-10-02] MEDS: FERROUS SULFATE 325 MG TABLET PO SCH ×2 (08:57→17:39)
[2019-10-02] MEDS: FAMOTIDINE 20 MG TABLET PO SCH ×2 (08:57→21:11)
[2019-10-02] MEDS: VANCOMYCIN 1,900 MG in SODIUM CHLORIDE 0.9% 250 ML IV SCH (10:59)
[2019-10-02] MEDS ORDERED: ENOXAPARIN 40 MG/0.4 ML SQ SCH (13:00)
[2019-10-02] MEDS: ENOXAPARIN 40 MG/0.4 ML SQ SCH (13:44)
[2019-10-02 14:00] VITALS: BP 99/57
[2019-10-02] MEDS ORDERED: IRON DEXTRAN COMPLEX 25 MG in SODIUM CHLORIDE 0.9% 50 ML IV ONE (15:30)
[2019-10-02] MEDS ORDERED: EPINEPHRINE 1 MG/ML, 1ML SQ PRN (15:30)
[2019-10-02] MEDS: MUPIROCIN OINT 2%, 1 GM APPL. TP SCH ×2 (15:54→21:11)
[2019-10-02] MEDS ORDERED: IRON DEXTRAN COMPLEX IV ONE (16:30)
[2019-10-02] MEDS ORDERED: SODIUM CHLORIDE 0.9% IV ONE (16:30)
[2019-10-02 20:01] VITALS: BP 122/76
[2019-10-02] MEDS: SODIUM CHLORIDE 0.9% 1,000 ML IV SCH (21:11)
[2019-10-03] MEDS: VANCOMYCIN 1,900 MG in SODIUM CHLORIDE 0.9% 250 ML IV SCH ×2 (00:37→12:50)
[2019-10-03 00:50] VITALS: BP 102/57
[2019-10-03 04:32] LABS: MEAN CORPUSCULAR HEMOGLOBIN 17.7 pg (27.5-34.5); MEAN CORPUSCULAR VOLUME 60.6 fL (81-97); PLATELET COUNT 427 x10^3/uL (130-400); RED BLOOD COUNT 4.18 x10^6/uL (4.38-5.82); RED CELL DISTRIBUTION WIDTH 21.6 % (9.4-14.8)
[2019-10-03 04:39] LABS: ALBUMIN 2.7 g/dL (3.4-5.0); ANION GAP 6 mmol/L (5-15); CALCIUM 8.6 mg/dL (8.5-10.1); CHLORIDE 107 mmol/L (98-107); CREATININE 0.73 mg/dL (0.7-1.3)
[2019-10-03 06:00] LABS: MEAN CORPUSCULAR HGB CONC 29.2 g/dL (33.2-36.2)
[2019-10-03 06:01] LABS: MD YES
[2019-10-03 06:02] LABS: EOS#(MANUAL) 0.42 x10^3/uL (0.0-0.4); EOS% (MANUAL) 3 % (1-7); LYMPH#(MANUAL) 2.26 x10^3/uL (1-3.4); LYMPHS% (MANUAL) 16 % (22-44); MONOS#(MANUAL) 0.42 x10^3/uL (0.3-2.7); MONOS% (MANUAL) 3 % (2-9); SEGS% (MANUAL) 78 % (42-75)
[2019-10-03 06:03] LABS: ANISOCYTOSIS 2+; HYPOCHROMIA 2+; MICROCYTOSIS 2+; POLYCHROMASIA 1+
[2019-10-03 06:04] LABS: <PLATELET ESTIMATE> INCREASED; <PLT MORPHOLOGY> NORMAL PLT MORPH; OVALOCYTES 1+
[2019-10-03 06:05] LABS: TARGET CELLS 1+
[2019-10-03 07:47] VITALS: BP 131/74
[2019-10-03] MEDS: FAMOTIDINE 20 MG TABLET PO SCH ×2 (08:05→21:18)
[2019-10-03] MEDS: FERROUS SULFATE 325 MG TABLET PO SCH ×2 (08:05→17:59)
[2019-10-03] MEDS: PIPERACILLIN/TAZO/PMX 3.375GM 50 ML IV SCH ×4 (08:05→23:41)
[2019-10-03] MEDS: MUPIROCIN OINT 2%, 1 GM APPL. TP SCH ×3 (08:07→21:18)
[2019-10-03] MEDS: HYDROmorphone 2 MG/ML, 1ML IV PRN ×3 (08:10→23:41)
[2019-10-03 13:53] VITALS: BP 97/60
[2019-10-03] MEDS: ENOXAPARIN 40 MG/0.4 ML SQ SCH (14:00)
[2019-10-03] MEDS: SODIUM CHLORIDE 0.9% 1,000 ML IV SCH (18:00)
[2019-10-03 20:22] VITALS: BP 100/63
[2019-10-03] MEDS ORDERED: VANCOMYCIN 2,000 MG in SODIUM CHLORIDE 0.9% 500 ML IV SCH (21:00)
[2019-10-04 02:17] VITALS: BP 114/64
[2019-10-04] MEDS: FERROUS SULFATE 325 MG TABLET PO SCH ×2 (08:15→17:38)
[2019-10-04] MEDS: FAMOTIDINE 20 MG TABLET PO SCH ×2 (08:15→20:56)
[2019-10-04] MEDS: PIPERACILLIN/TAZO/PMX 3.375GM 50 ML IV SCH ×2 (08:15→16:16)
[2019-10-04] MEDS: MUPIROCIN OINT 2%, 1 GM APPL. TP SCH ×3 (08:17→20:56)
[2019-10-04] MEDS: HYDROmorphone 2 MG/ML, 1ML IV PRN ×3 (08:26→20:56)
[2019-10-04] MEDS: VANCOMYCIN 2,000 MG in SODIUM CHLORIDE 0.9% 500 ML IV SCH ×2 (09:46→20:56)
[2019-10-04 10:24] VITALS: BP 142/79
[2019-10-04] MEDS: ENOXAPARIN 40 MG/0.4 ML SQ SCH (14:00)
[2019-10-04 15:03] VITALS: BP 96/60
[2019-10-04] MEDS: SODIUM CHLORIDE 0.9% 1,000 ML IV SCH (18:06)
[2019-10-04] MEDS: KETOROLAC 30 MG/1 ML IV PRN (19:32)
[2019-10-04 20:20] VITALS: BP 96/58
[2019-10-05] MEDS: PIPERACILLIN/TAZO/PMX 3.375GM 50 ML IV SCH ×3 (00:23→16:28)
[2019-10-05] MEDS: HYDROmorphone 2 MG/ML, 1ML IV PRN ×4 (00:23→13:59)
[2019-10-05 01:13] VITALS: BP 96/59
[2019-10-05] MEDS: KETOROLAC 30 MG/1 ML IV PRN ×2 (01:34→23:15)
[2019-10-05 07:21] VITALS: BP 110/73
[2019-10-05] MEDS: FERROUS SULFATE 325 MG TABLET PO SCH ×2 (08:03→16:29)
[2019-10-05] MEDS: FAMOTIDINE 20 MG TABLET PO SCH ×2 (08:03→20:31)
[2019-10-05] MEDS: SODIUM CHLORIDE 0.9% 1,000 ML IV SCH (08:04)
[2019-10-05] MEDS ORDERED: LIDOCAINE 1%, 10ML ONE (08:12)
[2019-10-05] MEDS: MUPIROCIN OINT 2%, 1 GM APPL. TP SCH ×3 (09:00→20:31)
[2019-10-05] MEDS: VANCOMYCIN 2,000 MG in SODIUM CHLORIDE 0.9% 500 ML IV SCH ×2 (09:03→20:31)
[2019-10-05 13:39] VITALS: BP 120/70
[2019-10-05] MEDS: ENOXAPARIN 40 MG/0.4 ML SQ SCH (13:59)
[2019-10-05 18:26] VITALS: BP 130/84
[2019-10-06 00:34] VITALS: BP 121/75
[2019-10-06] MEDS: HYDROmorphone 2 MG/ML, 1ML IV PRN ×6 (00:36→23:41)
[2019-10-06] MEDS: PIPERACILLIN/TAZO/PMX 3.375GM 50 ML IV SCH ×4 (03:25→23:41)
[2019-10-06 06:50] VITALS: BP 131/81
[2019-10-06] MEDS: FAMOTIDINE 20 MG TABLET PO SCH ×2 (08:01→19:43)
[2019-10-06] MEDS: FERROUS SULFATE 325 MG TABLET PO SCH ×2 (08:01→15:43)
[2019-10-06] MEDS: SODIUM CHLORIDE 0.9% 1,000 ML IV SCH (08:11)
[2019-10-06] MEDS: MUPIROCIN OINT 2%, 1 GM APPL. TP SCH ×3 (09:00→21:00)
[2019-10-06] MEDS: VANCOMYCIN 2,000 MG in SODIUM CHLORIDE 0.9% 500 ML IV SCH (09:21)
[2019-10-06 12:39] VITALS: BP 127/78
[2019-10-06] MEDS: ENOXAPARIN 40 MG/0.4 ML SQ SCH (13:57)
[2019-10-06] MEDS: LINEZOLID 600 MG TABLET PO SCH ×2 (15:43→23:40)
[2019-10-06 19:18] VITALS: BP 115/72
[2019-10-07 00:50] VITALS: BP 132/80
[2019-10-07] MEDS ORDERED: VANCOMYCIN 1,700 MG in SODIUM CHLORIDE 0.9% 250 ML IV SCH ×2 (03:00→09:00)
[2019-10-07] MEDS: HYDROmorphone 2 MG/ML, 1ML IV PRN ×2 (03:27→14:00)
[2019-10-07] MEDS: SODIUM CHLORIDE 0.9% 1,000 ML IV SCH (06:27)
[2019-10-07 07:09] VITALS: BP 143/84
[2019-10-07] MEDS ORDERED: VANCOMYCIN PER PHARMACY MC PRN (08:30)
[2019-10-07] MEDS ORDERED: FAMOTIDINE 40 MG TABLET ONE (08:49)
[2019-10-07] MEDS: FERROUS SULFATE 325 MG TABLET PO SCH ×2 (08:51→17:35)
[2019-10-07] MEDS: PIPERACILLIN/TAZO/PMX 3.375GM 50 ML IV SCH ×2 (08:51→17:36)
[2019-10-07] MEDS: FAMOTIDINE 20 MG TABLET PO SCH (08:54)
[2019-10-07] MEDS: MUPIROCIN OINT 2%, 1 GM APPL. TP SCH ×3 (09:00→17:35)
[2019-10-07] MEDS ORDERED: PHARMACOKINETIC MONITORING MC PRN (09:00)
[2019-10-07 12:40] VITALS: BP 141/75
[2019-10-07] MEDS ORDERED: LIDOCAINE 1%, 10ML ONE (13:10)
[2019-10-07] MEDS: ENOXAPARIN 40 MG/0.4 ML SQ SCH (13:57)
[2019-10-07] MEDS ORDERED: SULF1TAB24 PO (16:55)
== END 2019-10-07 18:45 | DRG 564 ==
LOC: ED 20:45 → EDIP 21:58 → 3N 22:52
PROVIDERS: ADMIT Internal Medicine; ATTEND Family Medicine
DX: T87.40 Infection of amputation stump, unspecified extremity (principal); A41.9 Sepsis, unspecified organism; R65.21 Severe sepsis with septic shock; N17.9 Acute kidney failure, unspecified; E87.1 Hypo-osmolality and hyponatremia; L03.115 Cellulitis of right lower limb; D50.9 Iron deficiency anemia, unspecified; F17.210 Nicotine dependence, cigarettes, uncomplicated; Y83.5 Amputation of limb(s) as the cause of abnormal reaction of the patient, or of later complication, without mention of misadventure at the time of the procedure; J44.9 Chronic obstructive pulmonary disease, unspecified; Z88.5 Allergy status to narcotic agent; Z89.511 Acquired absence of right leg below knee
CPT/HCPCS: 36415; 73564; 75989; 84145; 96374; 99285; J3490; 10160; 80048; 80069; 80202; 82040; 82728; 83540; 83550; 83605; 83735; 84466; 85025; 87040; 87070; 87075; 87077; 87186; 87205; G0378; J1170; J1750; J1885; J2543; J3010; J3370; J7030; J7040; J7050

== ENCOUNTER 2019-11-13 19:53 | Emergency (ER) | payer OTHER ==
[~2019-11-13] VITALS: Ht 182.9 cm; Wt 100.0 kg
[~2019-11-13 19:53] MED LIST changes: +SULF1TAB24 PO
[2019-11-13 19:56] VITALS: BP 117/65
[2019-11-13] MEDS ORDERED: SULFAMETH./TRIMETHOPRIM DS 800MG/160MG TABLET ONE (21:04)
[2019-11-13] MEDS ORDERED: SULFAMETH./TRIMETHOPRIM DS 800MG/160MG TABLET PO ONE (21:30)
== END 2019-11-13 21:12 | disposition home or self-care (01) ==
LOC: ED 20:23
DX: L03.115 Cellulitis of right lower limb (principal); J44.9 Chronic obstructive pulmonary disease, unspecified
CPT/HCPCS: 87070; 87077; 87147; 87205; 99283